=== PATIENT | female | born 1950 | race Caucasian/White ===

== ENCOUNTER → 2017-11-04 08:57 | Outpatient (CLI) | payer OTHER, SELFPAY ==
--- NOTE | 2017-11-04 | DI.RAD.S_ITS ---
PROCEDURE: XR CHEST 2V INDICATIONS: Dyspnea TECHNIQUE: 2 views of the chest were acquired. COMPARISON: [facility], CHEST 2 VIEW, 09/02/2015, 9:31. [facility], CHEST 1 VIEW, 09/17/2016, 8:36. FINDINGS: Surgical changes and devices: Permanent dual lead pacemaker Lungs and pleura: No pleural effusions or pneumothorax. Lungs are clear. Mediastinum: Mediastinal contours are normal. Heart size is normal. Bones and chest wall: No suspicious bony abnormalities. Focal sclerosis in the right humeral head is unchanged. Chronic compression fracture L1. Soft tissues appear unremarkable. IMPRESSION: No acute cardiopulmonary abnormality Dictated by: Tenzin Taylor M.D. on 11/04/2017 at 9:29 Approved by: Tenzin Taylor M.D. on 11/04/2017 at 9:31
== END ==
PROVIDERS: PCP Internal Medicine; Visit Provider Internal Medicine
DX: R06.00 Dyspnea, unspecified (principal)
CPT/HCPCS: 71046

== ENCOUNTER → 2017-11-16 10:55 | Outpatient (CLI) | payer OTHER, SELFPAY ==
--- NOTE | 2017-11-16 10:55 | DI.MG.S_ITS ---
BILATERAL DIGITAL SCREENING MAMMOGRAM 3D/2D WITH CAD: 11/16/2017 CLINICAL: Routine screening. Family history of breast cancer. Comparison is made to exams dated: 09/01/2016 mammogram, 11/22/2014 mammogram, and 11/21/2013 mammogram - [facility]. The tissue of both breasts is heterogeneously dense. This may lower the sensitivity of mammography. Current study was also evaluated with a Computer Aided Detection (CAD) system. No significant masses, calcifications, or other findings are seen in either breast. There has been no significant interval change. IMPRESSION: NEGATIVE There is no mammographic evidence of malignancy. A 1 year screening mammogram is recommended. This exam was interpreted at Station ID: [id number]. NOTE: For mammograms, a report in lay terms will be sent to the patient. Approximately 15% of breast malignancies will not be visualized mammographically. In the management of a palpable breast mass, a negative mammogram must not discourage biopsy of a clinically suspicious lesion. Electronically Signed By: Marlo pickering/watson:11/17/2017 09:07:04 copy to: CAROLYNN SAUNDERS letter sent: Normal Exam ACR BI-RADS Category 1: Negative 3341F
== END ==
PROVIDERS: PCP Internal Medicine; Visit Provider Internal Medicine
DX: Z12.31 Encounter for screening mammogram for malignant neoplasm of breast (principal); Z80.3 Family history of malignant neoplasm of breast
CPT/HCPCS: 77063; 77067

== ENCOUNTER → 2017-11-23 08:18 | Outpatient (CLI) | payer OTHER, SELFPAY ==
[2017-11-23 09:43] LABS: Cholesterol 244 mg/dL (140-199); Glucose 87 mg/dL (80-110); HDL Cholesterol 78 mg/dL (40-60); LDL Cholesterol Calculated 150 mg/dL (<100); Triglycerides 78 mg/dL (35-150)
== END ==
PROVIDERS: PCP Internal Medicine; Visit Provider Naturopath
DX: E78.2 Mixed hyperlipidemia (principal)
CPT/HCPCS: 36415; 80061; 82947

== ENCOUNTER → 2018-03-12 08:34 | Outpatient (CLI) | payer OTHER, SELFPAY ==
[2018-03-12 10:00] LABS: Cholesterol 281 mg/dL (140-199); Glucose 90 mg/dL (80-110); HDL Cholesterol 68 mg/dL (40-60); LDL Cholesterol Calculated 195 mg/dL (<100); Triglycerides 88 mg/dL (35-150)
== END ==
PROVIDERS: PCP Family Medicine; Visit Provider Naturopath
DX: E78.2 Mixed hyperlipidemia (principal)
CPT/HCPCS: 36415; 80061; 82947

== ENCOUNTER → 2018-03-15 09:13 | Outpatient (CLI) | payer OTHER, SELFPAY ==
--- NOTE | 2018-03-15 | DI.CT.S_ITS ---
PROCEDURE: CT HEAD/BRAIN WO/W CON INDICATIONS: DIZZINESS TECHNIQUE: 4.5 mm thick angled axial sections acquired from the foramen magnum to the vertex both before and after the administration of intravenous contrast, with coronal and sagittal reformats. For radiation dose reduction, the following was used: automated exposure control, adjustment of mA and/or kV according to patient size. COMPARISON: None. FINDINGS: Image quality: Excellent. CSF spaces: Basal cisterns are patent. No extra-axial fluid collections. Ventricles are symmetric in size and shape. Brain: No midline shift. No intracranial bleeds or masses. No abnormal intracranial enhancement. There is cerebral volume loss for age. There is periventricular white matter chronic small vessel ischemic change. There is intracranial internal carotid artery atherosclerosis. Skull and face: Calvarium and visualized facial bones appear intact, without suspicious lesions. Sinuses: Visualized sinuses and mastoids are clear. IMPRESSION: 1. No acute intracranial process. 2. Minimal atrophy and chronic microvascular ischemic changes. Dictated by: Jessica Weeks M.D. on 03/15/2018 at 11:18 Approved by: Jessica Weeks M.D. on 03/15/2018 at 11:20
== END ==
PROVIDERS: PCP Family Medicine; Visit Provider Family Medicine
DX: R42 Dizziness and giddiness (principal)
CPT/HCPCS: 70470; Q9967

== ENCOUNTER → 2018-04-16 07:58 | Outpatient (CLI) | payer OTHER, SELFPAY ==
[2018-04-16 09:56] LABS: Cholesterol 245 mg/dL (140-199); HDL Cholesterol 72 mg/dL (40-60); LDL Cholesterol Calculated 159 mg/dL (<100); Triglycerides 72 mg/dL (35-150)
== END ==
PROVIDERS: PCP Family Medicine; Visit Provider Naturopath
DX: E78.00 Pure hypercholesterolemia, unspecified (principal)
CPT/HCPCS: 36415; 80061

== ENCOUNTER → 2018-06-23 09:39 | Outpatient (CLI) | payer OTHER, SELFPAY ==
--- NOTE | 2018-06-23 | DI.ECHO.S_ITS ---
[facility]---------+ [facility] +---------+ : : [address] [place] [address] : : : : [id number] : : : : Phone: [phone]+ Echocardiogram Report + + :Name: YRIS ROBERTS Study Date: 06/23/2018 Height: 69 in : :[facility] Weight: 130 lb : : Gender: Female BSA: 1.7 m2 : :: 1950 Age: 68 yrs BP: 120/70 mmHg: :Reason For Study: Syncope : :Ordering Physician: Luciano Argueta : :Zuri Performed By: Kiki Bryson : :Referring: Uday Grace : + + Interpretation Summary Normal sinus rhythm. Normal LV size, wall thickness, wall motion and LV systolic function; EF is 55-60%; no diastolic dysfunction. Normal chamber sizes. No significant valvular abnormalities. There is a pacing lead traversing the tricuspid valve. No prior study available for comparison. Procedure: A two-dimensional transthoracic echocardiogram with color flow and Doppler was performed. The study quality was technically adequate. There is no prior echocardiogram noted for this patient. The patient has a paced rhythm. Left Ventricle: The left ventricle is normal in size. There is normal left ventricular wall thickness. The ejection fraction is estimated to be 55-60%. Diastolic parameters suggest probable normal left ventricular diastolic function and normal filling pressures. Right Ventricle: The right ventricle grossly appears normal in size with probable normal systolic function. There is a pacemaker lead in the right ventricle. Atria: The left atrial size is normal. Right atrial size is normal. There is a catheter/pacemaker lead seen in the right atrium. The interatrial septum is intact with no evidence for an atrial septal defect. Mitral Valve: The mitral valve is grossly normal. There is mild mitral regurgitation. Aortic Valve: The aortic valve is trileaflet. The aortic valve opens well. No aortic regurgitation is present. Tricuspid Valve: The tricuspid valve leaflets are thin and pliable. There is mild tricuspid regurgitation. The right ventricular systolic pressure is estimated to be at least 26 mmHg based on an estimated right atrial pressure of 3 mm Hg. Pulmonic Valve: The pulmonic valve is not well seen, but is grossly normal. There is trace pulmonic regurgitation. Great Vessels: The aortic root is normal size. The ascending aorta could not be visualized. The aortic arch is normal in size. The IVC is of normal diameter and collapses greater than 50% with a sniff. This suggests a low right atrial pressure of 3 mm Hg. Pericardium/ Pleura There is no pericardial effusion. There is no pleural effusion. MMode/2D Measurements & Calculations LVIDd: 4.4 cm Ao root diam: 3.4 cm LVIDs: 3.2 cm Aortic Jxn: 3.0 cm FS: 27.2 % Ao Arch Diam (Prox Trans): 2.8 cm EPSS: 0.21 cm IVSd: 0.79 cm LVPWd: 0.88 cm LV guerrero. diameter/BSA (cm/m^2): 2.5 LV sys. diameter/BSA (cm/m^2): 1.9 LA dimension: 3.3 cm RA long axis: 4.4 cm LA A2 area: 17.2 cm2 RA area: 16.7 cm2 LA A4 area: 15.4 cm2 RA vol: 53.9 ml LA length (vol): 4.5 cm RA : 31.3 ml/m2 LA vol: 50.5 ml IVC diam: 1.2 cm LA vol index: 29.3 ml/m2 RVDd major: 5.4 cm RVD1 (basal): 3.3 cm RVD2 (mid): 3.0 cm Doppler Measurements & Calculations Ao V2 max: 151.9 cm/sec MV E max mitch: 79.3 cm/sec Ao V2 mean: 107.4 cm/sec MV A max mitch: 71.4 cm/sec Ao max P.2 mmHg MV E/A: 1.1 Ao mean P.2 mmHg Med Peak E' Mitch: 6.5 cm/sec Ao V2 VTI: 34.6 cm E/E' med: 12.2 Lat Peak E' Mitch: 10.4 cm/sec E/E' lat: 7.6 E/e' average: 9.9 MV dec time: 0.20 sec MV P1/2t: 60.6 msec TR max mitch: 239.5 cm/sec MV P1/2t max mitch: 78.9 cm/sec TR max P.9 mmHg MVA(P1/2t): 3.6 cm2 PA V2 max: 95.3 cm/sec PA V2 mean: 59.7 cm/sec PA mean P.8 mmHg PA Accel Time: 0.13 sec Electronically signed by: Monae Marx M.D. on Reading Physician:06/25/2018 07:47 AM
--- NOTE | 2018-06-23 | DI.US.S_ITS ---
PROCEDURE: US CAROTID DOPPLER BI INDICATIONS: SYNCOPE TECHNIQUE: Color and pulse Doppler interrogation was performed of both carotid systems, with image documentation and velocity measurements. COMPARISON: [facility], CT, CT HEAD/BRAIN WO/W CON, 03/15/2018, 9:16. FINDINGS: Stenosis calculations are based on SRU (Society of Radiologists in Ultrasound) criteria. The flow velocities and the arterial waveforms are normal within both carotid arterial systems. The estimated degree of internal carotid artery stenosis is less than 50%. Antegrade flow is confirmed within both vertebral arteries. IMPRESSION: No hemodynamically significant stenosis is seen. Dictated by: Luis Duggan M.D. on 06/23/2018 at 12:22 Approved by: Luis Duggan M.D. on 06/23/2018 at 12:22
== END ==
PROVIDERS: PCP Family Medicine; Visit Provider Internal Medicine Cardiovascular Disease
DX: I08.1 Rheumatic disorders of both mitral and tricuspid valves (principal); R55 Syncope and collapse; Z95.0 Presence of cardiac pacemaker
CPT/HCPCS: 93306; 93880

== ENCOUNTER → 2018-06-28 07:49 | Outpatient (CLI) | payer OTHER, SELFPAY ==
[2018-06-28 09:27] LABS: Cholesterol 253 mg/dL (140-199); HDL Cholesterol 74 mg/dL (40-60); LDL Cholesterol Calculated 162 mg/dL (<100); Triglycerides 83 mg/dL (35-150)
== END ==
PROVIDERS: PCP Family Medicine; Visit Provider Naturopath
DX: E78.2 Mixed hyperlipidemia (principal)
CPT/HCPCS: 36415; 80061

== ENCOUNTER → 2018-07-07 08:24 | Outpatient (CLI) | payer OTHER, SELFPAY ==
[2018-07-07 09:03] LABS: BUN Creatinine Ratio 22.9 (6-22); Blood Urea Nitrogen 16 mg/dL (7-17); Calcium 9.4 mg/dL (8.4-10.2); Carbon Dioxide 27 mmol/L (22-32); Chloride 102 mmol/L (98-107); Estimated Glomerular Filt Rate > 60.0 mL/min (>60); Glucose 92 mg/dL (80-110); HEMOLYSIS < 15 (0-50); Potassium 3.8 mmol/L (3.4-5.1); Sodium 139 mmol/L (137-145)
[2018-07-07 09:45] LABS: Free T3, Triiodothyronine Free 3.54 pg/mL (2.77-5.27)
[2018-07-07 09:59] LABS: Thyroid Stimulating Hormone 1.73 uIU/mL (0.47-4.68)
== END ==
PROVIDERS: Family Provider Naturopath; PCP Family Medicine; Visit Provider Physician Assistant
DX: I44.2 Atrioventricular block, complete (principal); R53.83 Other fatigue
CPT/HCPCS: 36415; 80048; 84439; 84443; 84481

== ENCOUNTER → 2018-10-10 09:59 | Outpatient (CLI) | payer OTHER, SELFPAY ==
--- NOTE | 2018-10-10 | DI.RAD.S_ITS ---
PROCEDURE: XR FOOT RT MIN 3V INDICATIONS: PAIN OF RIGHT FOOT TECHNIQUE: 3 views of the foot were acquired. COMPARISON: None. FINDINGS: Bones: Fracture involving the proximal phalanx of the fifth toe. . No suspicious bony lesions. Plantar calcaneal spur. Os peroneum incidentally noted. Mild first MTP and great toe interphalangeal joint degeneration. Soft tissues: No tibiotalar joint effusion. Achilles tendon appears normal. IMPRESSION: Fifth toe proximal phalanx fracture. Dictated by: Ger Wilson M.D. on 10/10/2018 at 11:02 Approved by: Ger Wilson M.D. on 10/10/2018 at 11:08
== END ==
PROVIDERS: Family Provider Naturopath; PCP Family Medicine; Visit Provider Family Medicine
DX: M79.671 Pain in right foot (principal); S92.511A Displaced fracture of proximal phalanx of right lesser toe(s), initial encounter for closed fracture; M77.31 Calcaneal spur, right foot; M19.071 Primary osteoarthritis, right ankle and foot
CPT/HCPCS: 73630

== ENCOUNTER → 2019-01-25 11:09 | Outpatient (CLI) | payer OTHER, SELFPAY ==
--- NOTE | 2019-01-25 | DI.RAD.S_ITS ---
PROCEDURE: XR LUMBAR SPINE 2-3V INDICATIONS: LOW BACK PAIN TECHNIQUE: 3 views of the lumbar spine were acquired. COMPARISON: [facility], CR, XR CHEST 2V, 11/04/2017, 8:37. FINDINGS: Bones: L1 compression fracture appears grossly unchanged since 11/04/17. Multilevel degenerative endplate sclerosis and spurring. Diffuse facet arthropathy. Trace retrolisthesis of L3 on L4, and L4-L5. Severe narrowing of the L4-L5 disc space. Mild narrowing of the remaining lumbar disc spaces and visualized lower thoracic disc spaces Soft tissues: Overlying bowel gas pattern is normal. No suspicious soft tissue calcifications. IMPRESSION: Unchanged appearance of L1 compression fracture. Multilevel lumbar spondylosis most pronounced at L4-L5. Dictated by: Ger Wilson M.D. on 01/25/2019 at 13:17 Approved by: Ger Wilson M.D. on 01/25/2019 at 13:19
== END ==
PROVIDERS: Family Provider Naturopath; PCP Family Medicine; Visit Provider Family Medicine
DX: M54.5 Low back pain (principal); M47.816 Spondylosis without myelopathy or radiculopathy, lumbar region; M48.56XS Collapsed vertebra, not elsewhere classified, lumbar region, sequela of fracture
CPT/HCPCS: 72100

== ENCOUNTER → 2019-02-21 09:08 | Outpatient (CLI) | payer OTHER, SELFPAY ==
--- NOTE | 2019-02-21 | DI.MG.S_ITS ---
BILATERAL DIGITAL SCREENING MAMMOGRAM 3D/2D WITH CAD: 02/21/2019 CLINICAL: Routine screening. Family history of breast cancer. Comparison is made to exams dated: 11/16/2017 mammogram, 09/01/2016 mammogram, and 11/22/2014 mammogram - [facility]. The tissue of both breasts is heterogeneously dense. This may lower the sensitivity of mammography. Current study was also evaluated with a Computer Aided Detection (CAD) system. No significant masses, calcifications, or other findings are seen in either breast. There has been no significant interval change. IMPRESSION: NEGATIVE There is no mammographic evidence of malignancy. A 1 year screening mammogram is recommended. This exam was interpreted at Station ID: [id number]. NOTE: For mammograms, a report in lay terms will be sent to the patient. Approximately 15% of breast malignancies will not be visualized mammographically. In the management of a palpable breast mass, a negative mammogram must not discourage biopsy of a clinically suspicious lesion. Electronically Signed By: Hussein spangler/watson:02/21/2019 21:39:19 letter sent: Normal Exam ACR BI-RADS Category 1: Negative 3341F
== END ==
PROVIDERS: PCP Family Medicine; Visit Provider Family Medicine
DX: Z12.31 Encounter for screening mammogram for malignant neoplasm of breast (principal); Z80.3 Family history of malignant neoplasm of breast
CPT/HCPCS: 77063; 77067

== ENCOUNTER → 2019-12-21 13:24 | Outpatient (CLI) | payer MEDICARE, OTHER, SELFPAY ==
[2019-12-22 09:57] LABS: COVID19 Sendout Not Detected (Not Detect)
== END ==
PROVIDERS: PCP Family Medicine; Visit Provider Nurse Practitioner
DX: Z11.59 Encounter for screening for other viral diseases (principal)
CPT/HCPCS: 87635

== ENCOUNTER → 2020-05-21 09:59 | Outpatient (CLI) | payer MEDICARE, OTHER, SELFPAY ==
[2020-05-21] MEDS: COVID-19 VACC #1, MRNA(MOD) 100 MCG/0.5 ML VIAL IM (10:06)
== END ==
PROVIDERS: PCP Family Medicine; Visit Provider Internal Medicine
DX: Z23 Encounter for immunization (principal)
CPT/HCPCS: 0011A; 91301

== ENCOUNTER → 2020-06-18 09:59 | Outpatient (CLI) | payer MEDICARE, OTHER, SELFPAY ==
[2020-06-18] MEDS: COVID-19 VACC #2, MRNA(MOD) 100 MCG/0.5 ML VIAL IM (10:20)
== END ==
PROVIDERS: PCP Family Medicine; Visit Provider Internal Medicine
DX: Z23 Encounter for immunization (principal)
CPT/HCPCS: 0012A; 91301

== ENCOUNTER → 2020-07-31 10:26 | Outpatient (CLI) | payer MEDICARE, OTHER, SELFPAY ==
--- NOTE | 2020-07-31 | DI.MG.S_ITS ---
BILATERAL DIGITAL SCREENING MAMMOGRAM 3D/2D WITH CAD: 07/31/2020 CLINICAL: Routine screening. Family history of breast cancer. Comparison is made to exams dated: 02/21/2019 mammogram, 11/16/2017 mammogram, and 09/01/2016 mammogram - [facility]. The tissue of both breasts is heterogeneously dense. This may lower the sensitivity of mammography. Current study was also evaluated with a Computer Aided Detection (CAD) system. No significant masses, calcifications, or other findings are seen in either breast. There has been no significant interval change. IMPRESSION: NEGATIVE There is no mammographic evidence of malignancy. A 1 year screening mammogram is recommended. This exam was interpreted at Station ID: [id number]. NOTE: For mammograms, a report in lay terms will be sent to the patient. Approximately 15% of breast malignancies will not be visualized mammographically. In the management of a palpable breast mass, a negative mammogram must not discourage biopsy of a clinically suspicious lesion. Electronically Signed By: Neto Lama acr/watson:07/31/2020 10:55:08 letter sent: Normal Exam ACR BI-RADS Category 1: Negative 3341F
== END ==
PROVIDERS: PCP Family Medicine; Referring Provider Family Medicine; Visit Provider Family Medicine
DX: Z12.31 Encounter for screening mammogram for malignant neoplasm of breast (principal)
CPT/HCPCS: 77063; 77067

== ENCOUNTER → 2021-03-24 10:06 | Outpatient (CLI) | payer MEDICARE, OTHER, SELFPAY ==
--- NOTE | 2021-03-24 10:11 | DI.CT.S_ITS ---
PROCEDURE: CT SINUS SCREEN WO CON INDICATIONS: Unspecified disturbances of smell and taste TECHNIQUE: Noncontrast 3.0 mm axial images acquired from the frontal sinuses to the mid-sella, with coronal and sagittal reformats. For radiation dose reduction, the following was used: automated exposure control, adjustment of mA and/or kV according to patient size. COMPARISON: Correlation is made with head CT, 03/15/2018. FINDINGS: Image quality: Excellent. Maxillary Sinuses: No bony remodeling or destruction. Sinuses are clear. Ethmoid Air Cells: No bony remodeling or destruction. Sinuses are clear. Sphenoid Sinuses: No bony remodeling or destruction. Sinuses are clear. Frontal Sinuses: No bony remodeling or destruction. Sinuses are clear. Ostiomeatal Complexes: Ostiomeatal complexes are patent. No Marlene cells. Miscellaneous: Visualized intra-orbital contents are normal. There is a small left-sided kim bullosa. There is moderate rightward nasal septal deviation. IMPRESSION: No significant active paranasal sinus disease is seen. Moderate rightward nasal septal deviation. Dictated by: Luis Duggan M.D. on 03/24/2021 at 9:48 Approved by: Luis Duggan M.D. on 03/24/2021 at 9:50
== END ==
PROVIDERS: PCP Family Medicine; Referring Provider Family Medicine; Visit Provider Family Medicine
DX: R43.9 Unspecified disturbances of smell and taste (principal); J34.2 Deviated nasal septum
CPT/HCPCS: 70486

== ENCOUNTER 2021-09-08 07:27 | Emergency (ER) | payer MEDICARE, OTHER, SELFPAY ==
[2021-09-08 07:37] VITALS: BP 143/74; PULSE 69; RESP 17; TEMP 36.8; O2SAT 98; BMI 19.8
--- NOTE | 2021-09-08 08:01 | DI.CT.S_ITS ---
PROCEDURE: CT ANGIO HEAD AND NECK INDICATIONS: bilateral visual changes now resovled TECHNIQUE: Pre-contrast 4.5 mm thick sections acquired from the foramen magnum to the vertex. After the administration of intravenous contrast, 1 mm thick sections acquired from the aortic arch through the [place] of [place]. Post-contrast 4.5 mm thick sections then re-acquired from the foramen magnum to the vertex. 3-dimensional rlbqufb-hksklnnof-eabckkyofy (MIP) and/or volume rendering reformats were acquired of the central intracranial vasculature and neck separately. For radiation dose reduction, the following was used: automated exposure control, adjustment of mA and/or kV according to patient size. COMPARISON: None. FINDINGS: Image quality: Excellent. BRAIN: CSF spaces: Ventricles are normal in size and shape. Basal cisterns are patent. No extra-axial fluid collections. Brain: No midline shift. No intracranial bleeds or masses. Mccray-white matter interface appears intact. Skull and face: Calvarium and facial bones appear intact, without suspicious lesions. Orbits appear normal. Sinuses: Sinuses and mastoids are clear. HEAD CT ANGIOGRAPHY: Anterior circulation: Intracranial internal carotid arteries are normal in size and flow. The flow within the paired anterior cerebral arteries is normal and symmetric. The flow within the middle cerebral arteries is normal and symmetric. The anterior communicating artery is seen. No aneurysms are seen. Posterior circulation: Visualized portions of the vertebral arteries demonstrate normal caliber, and join to form a normal appearing basilar artery. Flow within the posterior cerebral arteries is normal and symmetric. No aneurysms are seen. NECK CT ANGIOGRAPHY: Carotid system: Left vertebral artery arises directly from the aortic arch. Aortic arch branching anatomy is otherwise normal. The origins of the common carotid arteries appear patent. The common carotid arteries demonstrate normal caliber and courses. The bifurcation regions are both widely patent. The internal carotid arteries demonstrate normal calibers and courses. Posterior circulation: The origins of the vertebral arteries both appear widely patent. Left vertebral artery arises directly from the aortic arch. The more superior extracranial portions of both vertebral arteries also demonstrate normal courses and calibers. They join to form a normal appearing basilar artery. Soft tissues: Visualized neck soft tissues demonstrate no suspicious abnormalities. Bones: No suspicious bony lesions. Visualized cervical spine appears normally aligned. IMPRESSION: 1. Negative CT angiography of the head and neck. No acute process. Any quantitative measurements of stenosis were performed using NASCET criteria. Dictated by: Jose Shepard M.D. on 09/08/2021 at 9:07 Approved by: Jose Shepard M.D. on 09/08/2021 at 9:12
--- NOTE | 2021-09-08 08:04 | ED_ITS ---
HPI - Neuro Symptoms/Deficit General Chief Complaint: Neuro Symptoms/Deficit Stated Complaint: Something weird with vision Time Seen by Provider: 09/08/21 07:41 Source: patient Mode of arrival: Ambulatory History of Present Illness HPI Narrative: Patient is a 71-year-old female history of hyperlipidemia without taking medication pacemaker presenting today with bilateral visual change. She states she woke up then started watching TV in bed and noticed a horizontal line across her vision. She realized it was in both eyes. She denies loss vision. She just says there was a line. No halos do pain. She denies numbness tingling or weakness. She has no facial droop or difficulty speaking. She was able to walk around the house. She said it made her quite anxious and she thinks she may have had an anxiety attack. EMS was called however she was reassured and came to the ED by POV. Symptoms lasted for about 30 minutes and have completely resolved. She is now sitting in the ED reading a book. On Anticoagulants: No Related Data Home Medications Medication Instructions Recorded Confirmed MULTIVITAMIN/MINERALS (ICAPS PLUS) 1 tab PO QDAY #0 09/17/16 10/18/17 Allergies Allergy/AdvReac Type Severity Reaction Status Date / Time Antihistamines - Alkylamine Allergy Unknown Verified 12/21/19 13:45 [ANTIHISTAMINES - ALKYLAMINE] latex [LATEX] Allergy Unknown Verified 12/21/19 13:45 Sulfa (Sulfonamide Allergy Unknown Verified 12/21/19 13:45 Antibiotics) [SULFA (SULFONAMIDE ANTIBIOTICS)] Review of Systems Review of Systems Narrative: GENERAL: Denies chills, fatigue, malaise, fever, sweats, travel HEENT: See HPI RESPIRATORY: Denies dyspnea, cough, wheezing, hemoptysis, sputum. CARDIOVASCULAR: Denies chest pain, palpitations, orthopnea, edema GASTROINTESTINAL: Denies nausea, vomiting, abdominal pain, diarrhea, constipation, melena. : Denies dysuria, frequency, incontinence, hematuria, urinary retention, flank pain. MUSCULOSKELETAL: Denies weakness, joint pain, or bony pain SKIN: No rash, no erythema, no pruritus NEUROLOGIC: Denies weakness, dizziness, headache, numbness, change in speech, confusion PSYCHIATRIC: No concerning psychosocial issues. 12 point review of systems is negative except for those stated above and HPI Hematologic/Lymphatic On Anticoagulants: No Patient History Medical History (Updated 09/08/21 @ 09:25 by Cinthya León DO) Alopecia Cardiac arrhythmia Chickenpox Endometriosis Infertility Measles Mumps Osteopenia Osteoporosis Skin cancer Surgical History Anesthesia Presence of cardiac pacemaker (~2008) Status post catheter ablation of slow pathway (~2002) Family History Grandfather Heart disease Grandmother Stroke Grandfather Heart disease Father Anxiety Dementia Family/Other Sleep apnea Social History Smoking Status: Never smoker Smoking Status: Never smoker alcohol intake frequency: 0-2 drinks per day Substance Use Type: does not use Exam Initial Vital Signs Initial Vital Signs: Vital Signs Temperature 98.2 F 09/08/21 07:37 Pulse Rate 69 09/08/21 07:37 Respiratory Rate 17 09/08/21 07:37 Blood Pressure 143/74 H 09/08/21 07:37 Pulse Oximetry 98 09/08/21 07:37 GENERAL: Alert pleasant well-appearing 71-year-old female HEENT: Head atraumatic,EOMI, pupils reactive, red reflex present, face symmetric, moist mucous membranes CARDIOVASCULAR: Regular rate and rhythm without murmurs, rubs or gallops. RESPIRATORY: Breath sounds equal bilaterally, no wheezes rales or rhonchi. ABDOMEN: Soft, nontender. Normoactive bowel sounds all 4 quadrants. No guarding or rebound. EXTREMITIES: Normal range of motion, no clubbing or edema. Neurovascularly intact NEUROLOGICAL: Alert and oriented x4.Normal gait and speech. Cranial nerves II through XII grossly intact. Good [id number], good [id number], strength equal bilaterally, no dysarthria or aphasia, sensation in tact to soft touch bilaterally, no visual changes, no facial droop SKIN: Warm, dry, no laceration, no petechiae, no rashes or lesions. Scores NIH Stroke Scale Level of Conciousness: Alert, keenly responsive Ask month/age: Answers both questions correctly. Open/close eyes, close hand: Performs both tasks correctly Best gaze horizontal: Normal Visual damon: No visual loss Facial palsy: Normal symetrical movement Left arm drift: No drift for full 10 sec Right arm drift: No drift for full 10 sec Left leg drift: No drift for full 5 sec Right leg drift: No drift for full 5 sec Limb ataxia: Absent Sensory on face/arms/legs: Normal, no sensory loss Best language: No aphasia, normal Dysarthria: Normal Extinction or inattention: No abnormality Total NIH Stroke scale score: 0 Course Orders Ordered: ED Orders 09/08/21 08:01 CT angio head and neck Stat EKG-12 Lead Stat 09/08/21 08:35 Complete Blood Count AUTO DIFF Stat Comprehensive Metabolic Panel Stat Lipase Stat Troponin & CK Cardiac Panel Stat Vital Signs Vital signs: Vital Signs - 8 hr 09/08/21 07:37 09/08/21 08:40 09/08/21 08:41 Temperature 98.2 F Pulse Rate 69 69 69 Respiratory Rate 17 Blood Pressure 143/74 H 135/66 Pulse Oximetry 98 98 99 MDM - Neuro Symptoms/Deficit Lab Data Result diagrams: 09/08/21 08:35 09/08/21 08:35 Labs: Lab Results 09/08/21 09/08/21 Range/Units 08:35 08:35 WBC 4.6 (4.5-11.0) X10^3/uL RBC 4.22 (4.0-5.2) X10^6/uL Hgb 13.0 (12.0-16.0) g/dL Hct 38.1 (36-46) % MCV 90.4 (80-100) fL MCH 30.9 (26-34) PG MCHC 34.2 (30-36) % RDW 13.3 (11.6-14.8) % Plt Count 149 L (150-400) X10^3/uL Neut % (Auto) 58.6 (50-75) % Lymph % (Auto) 32.5 (25-40) % [place] % (Auto) 6.9 (3-14) % Eos % (Auto) 1.5 L (2-4) % Baso % (Auto) 0.5 (0-2) % Neut # (Auto) 2700 (4778-7883) /uL Lymph # (Auto) 1500 (2715-9119) /uL Charlton # (Auto) 300 (0-900) /uL Eos # (Auto) 100 (0-450) /uL Baso # (Auto) 0 (0-100) /uL Sodium 134 L (137-145) mmol/L Potassium 3.8 (3.4-5.1) mmol/L Chloride 104 (98-107) mmol/L Carbon Dioxide 26 (22-32) mmol/L BUN 18 H (7-17) mg/dL Creatinine 0.69 (0.52-1.04) mg/dL Estimated GFR > 60 (>60) mL/min BUN/Creatinine Ratio 26.1 H (6-22) Glucose 102 (80-110) mg/dL Calcium 8.7 (8.4-10.2) mg/dL Total Bilirubin 0.3 (0.2-1.3) mg/dL AST 25 (14-36) IU/L ALT 18 (<35) IU/L Alkaline Phosphatase 58 (38-126) U/L Total Creatine Kinase 70 (30-135) U/L CK-MB (CK-2) TNP CK-MB (CK-2) Rel Index TNP Troponin I < 0.012 (0.01-0.034) ng/mL Total Protein 6.6 (6.3-8.2) g/dL Albumin 3.8 (3.5-5.0) g/dL Globulin 2.8 (1.7-4.1) g/dL Albumin/Globulin Ratio 1.4 (1.0-2.8) Lipase 75 (23-300) U/L Imaging Data CTA - brain/neck: Radiologist's Impression: Signed Patient: Laisha Greene MR#: [id number] : 1950 Acct:[id number] Age/Sex: 71 / F Date of Service: 09/08/21 Loc: ED Accession Number: [id number] ?? Procedure: CT angio head and neck Ordering Provider: Cinthya León D.O. PROCEDURE:? CT ANGIO HEAD AND NECK ? INDICATIONS:? bilateral visual changes now resovled ? TECHNIQUE:? Pre-contrast 4.5 mm thick sections acquired from the foramen magnum to the vert ex.? After the administration of intravenous contrast, 1 mm thick sections acquired from the aortic arch through the [place] of [place].? Post-contrast 4.5 mm thick sections then re- acquired from the foramen magnum to the vertex.? 3-dimensional rpcdsei-odfrkyajl-intjxgxojc (MIP) and/or volume rendering reformats were acquired of the central intracranial vasculature and neck separately. For radiation dose reduction, the following was used:? automated exposure control, adjustment of mA and/or kV according to patient size.? ? COMPARISON:? None. ? FINDINGS:? Image quality:? Excellent.? ? BRAIN:? CSF spaces:? Ventricles are normal in size and shape.? Basal cisterns are patent.? No extra-axial fluid collections.? ? Brain:? No midline shift.? No intracranial bleeds or masses.? Mccray-white matter interface appears intact.? ? Skull and face:? Calvarium and facial bones appear intact, without suspicious lesions.? Orbits appear normal.? ? Sinuses:? Sinuses and mastoids are clear.? ? HEAD CT ANGIOGRAPHY:? Anterior circulation:? Intracranial internal carotid arteries are normal in size and flow.? The flow within the paired anterior cerebral arteries is normal and symmetric.? The flow within the middle cerebral arteries is normal and symmetric.? The anterior communicating artery is seen.? No aneurysms are seen.? ? Posterior circulation:? Visualized portions of the vertebral arteries demonstrate normal caliber, and join to form a normal appearing basilar artery.? Flow within the posterior cerebral arteries is normal and symmetric.? No aneurysms are seen.? ? NECK CT ANGIOGRAPHY:? Carotid system:? Left vertebral artery arises directly from the aortic arch.? Aortic arch branching anatomy is otherwise normal.? The origins of the common carotid arteries appear patent.? The common carotid arteries demonstrate normal caliber and courses.? The bifurcation regions are both widely patent.? The internal carotid arteries demonstrate normal calibers and courses.? ? Posterior circulation:? The origins of the vertebral arteries both appear widely patent.? Left vertebral artery arises directly from the aortic arch.? The more superior extracranial portions of both vertebral arteries also demonstrate normal courses and calibers.? They join to form a normal appearing basilar artery.? ? Soft tissues:? Visualized neck soft tissues demonstrate no suspicious abnormalities.? ? Bones:? No suspicious bony lesions.? Visualized cervical spine appears normally aligned.? IMPRESSION:? 1. Negative CT angiography of the head and neck.? No acute process.? ? Any quantitative measurements of stenosis were performed using NASCET criteria.? ? ? Dictated by: Jose Shepard M.D. on 09/08/2021 at 9:07 ? ? Approved by: Jose Shepard M.D. on 09/08/2021 at 9:12 ECG Data Interpretation: Normal sinus rhythm rate 64 ME interval free of for QRS 140 QTC 453 T-wave inversions are noted in precordial leads no pacemaker spikes slightly different from previous EKG in 2017 MDM Narrative Medical decision making narrative: The patient has had bilateral visual abnormalities. Not consistent with stroke. However she has hyperlipidemia the remains untreated and a pacemaker. Her NIH is currently 0. Will do workup and re-evaluate. Patient has a pacemaker for heart block. Patient's visual disturbance with bilateral no concern for retinal detachment this time. She had no loss of vision no flashing lights. Symptoms are not consistent with stroke. Head CT angio and blood work are overall reassuring. At this time recommend outpatient workup. I discussed all findings with the patient , Education has been performed regarding treatment plan, diagnosis, warning signs and symptoms and all concerns have been addressed. Verbally agree with and understood all of the above. Discharge Plan Departure Patient Disposition: Home Clinical Impression: Visual disturbance Instructions: DI for Visual Field Disturbances Activity Restrictions/Additional Instructions: *You have been diagnosed with visual disturbance *What to do: At this time blood work and scan today are negative. Symptoms not consistent with stroke. I recommend he follow up with her primary care provider and possibly ophthalmology. Please return to the ED if her symptoms should return *Continue to take medications as directed *Follow up with your primary care provider in 2-3 days or call [phone] *Return to ER if you should have worsening symptoms, numbness, tingling, weakness or any new, worsening or concerning symptoms Prescriptions: No Action MULTIVITAMIN/MINERALS (ICAPS PLUS) 1 tab PO QDAY Qty: 0 0RF Referrals: Uday Grace MD [Primary Care Provider] -
[2021-09-08 08:40] VITALS: PULSE 69; O2SAT 98
[2021-09-08 08:41] VITALS: BP 135/66; PULSE 69; O2SAT 99
[2021-09-08 08:41] LABS: Add Manual Diff / Slide Review NO; Basophils Absolute Auto 0 /uL (0-100); Basophils Percent Auto 0.5 % (0-2); Eosinophils Absolute Auto 100 /uL (0-450); Eosinophils Percent Auto 1.5 % (2-4); Hematocrit 38.1 % (36-46); Lymphocytes Absolute Auto 1500 /uL (1100-4500); Lymphocytes Percent Auto 32.5 % (25-40); Mean Corpuscular HGB Conc 34.2 % (30-36); Mean Corpuscular Hemoglobin 30.9 PG (26-34); Mean Corpuscular Volume 90.4 fL (80-100); Monocytes Absolute Auto 300 /uL (0-900); Monocytes Percent Auto 6.9 % (3-14); Neutrophils Absolute Auto 2700 /uL (1500-7000); Neutrophils Percent Auto 58.6 % (50-75); Platelet Count 149 X10^3/uL (150-400); Red Blood Cell Count 4.22 X10^6/uL (4.0-5.2); Red Cell Distribution Width 13.3 % (11.6-14.8); White Blood Cell Count 4.6 X10^3/uL (4.5-11.0)
[2021-09-08 08:52] LABS: Alanine Aminotransferase 18 IU/L (<35); Albumin 3.8 g/dL (3.5-5.0); Albumin Globulin Ratio 1.4 (1.0-2.8); Alkaline Phosphatase 58 U/L (38-126); Aspartate Aminotransferase 25 IU/L (14-36); BUN Creatinine Ratio 26.1 (6-22); Bilirubin Total 0.3 mg/dL (0.2-1.3); Blood Urea Nitrogen 18 mg/dL (7-17); Calcium 8.7 mg/dL (8.4-10.2); Carbon Dioxide 26 mmol/L (22-32); Chloride 104 mmol/L (98-107); Creatine Kinase 70 U/L (30-135); Estimated Glomerular Filt Rate > 60 mL/min (>60); Globulin 2.8 g/dL (1.7-4.1); Glucose 102 mg/dL (80-110); HEMOLYSIS < 15 (0-50); Lipase 75 U/L (23-300); Potassium 3.8 mmol/L (3.4-5.1); Sodium 134 mmol/L (137-145); Total Protein 6.6 g/dL (6.3-8.2)
[2021-09-08 09:00] VITALS: PULSE 66; O2SAT 98
[2021-09-08 09:03] LABS: Troponin I < 0.012 ng/mL (0.01-0.034)
[2021-09-08 09:30] VITALS: PULSE 62; O2SAT 97
[2021-09-08 09:37] VITALS: BP 146/65; PULSE 62; RESP 18; O2SAT 98
== END 2021-09-08 09:38 | disposition home or self-care (01) ==
PROVIDERS: Emergency Provider Emergency Medicine; PCP Family Medicine
DX: H53.9 Unspecified visual disturbance (principal); E78.5 Hyperlipidemia, unspecified; Z95.0 Presence of cardiac pacemaker
CPT/HCPCS: 36415; 70496; 70498; 80053; 82550; 83690; 84484; 85025; 93005; 93010; 99283

== ENCOUNTER → 2021-12-08 10:00 | Outpatient (CLI) | payer MEDICARE, OTHER, SELFPAY ==
--- NOTE | 2021-12-08 | DI.MG.S_ITS ---
BILATERAL DIGITAL SCREENING MAMMOGRAM 3D/2D WITH CAD: 12/08/2021 CLINICAL: Routine screening. Family history of breast cancer. Comparison is made to exams dated: 07/31/2020 mammogram, 02/21/2019 mammogram, 11/16/2017 mammogram, and 09/01/2016 mammogram - [facility]. The tissue of both breasts is heterogeneously dense. This may lower the sensitivity of mammography. Current study was also evaluated with a Computer Aided Detection (CAD) system. No significant masses, calcifications, or other findings are seen in either breast. There has been no significant interval change. IMPRESSION: NEGATIVE There is no mammographic evidence of malignancy. A 1 year screening mammogram is recommended. This exam was interpreted at Station ID: [id number]. NOTE: For mammograms, a report in lay terms will be sent to the patient. Approximately 15% of breast malignancies will not be visualized mammographically. In the management of a palpable breast mass, a negative mammogram must not discourage biopsy of a clinically suspicious lesion. Electronically Signed By: Aidan huerta/watson:12/08/2021 11:24:51 letter sent: Normal Exam ACR BI-RADS Category 1: Negative [id number]
== END ==
PROVIDERS: PCP Family Medicine; Referring Provider Family Medicine; Visit Provider Family Medicine
DX: Z12.31 Encounter for screening mammogram for malignant neoplasm of breast (principal); Z80.3 Family history of malignant neoplasm of breast
CPT/HCPCS: 77063; 77067